=== PATIENT | female | born 1950 | race Caucasian/White ===

== ENCOUNTER 2018-03-20 23:24 | Emergency (ER) | payer BC ==
[~2018-03-20] VITALS: Ht 160 cm; Wt 82.9 kg
[~2018-03-20 23:24] MED LIST: CARVEDILOL25 MG PO; CIPRO500 MG PO; COREG25 M1 PO; COZAAR100 MG PO; DOXEPIN HCL50 MG PO; GLIPIZIDE10 MG PO; GLUCOPHAGE500 MG PO; GLUCOTROL10 MG PO; HYOSCYAMINE0.125 M1 SL; LANSOPRAZOLE30 MG PO; LOSARTAN POTAS100 MG PO; METFORMIN HCL500 MG PO; NIFEDIPINE10 MG PO; NORCO 5/3251 TABLET PO; PREVACID30 MG PO; PROCARDIA10 MG PO; SIMVASTATIN40 MG PO; SINEQUAN50 MG PO; SUCRALFATE1 GM PO; TRADJENTA5 MG PO; TYLENOL WITH C1 EACH PO; VITAMIN D31000 UNI2 PO; ZOCOR40 MG PO; ZOFRAN4 MG PO
[2018-03-21] LABS: HEMATOCRIT 37.5 % (36.0-46.0); HEMOGLOBIN 13.2 G/DL (11.9-15.5); MCH 32.4 PG (29.0-34.0); MCHC 35.2 G/DL (30.0-36.0); PLATELET COUNT 159 K/uL (156-360); RBC DIS.WIDTH-CV 13.4 % (11.8-14.6); RBC DIS.WIDTH-SD 45.5 % (39-53); RED BLOOD COUNT 4.08 M/uL (3.80-5.20); WHITE BLOOD COUNT 6.3 K/uL (4.1-10.2)
[2018-03-21 00:02] LABS: MCV 91.9 FL (83-99)
[2018-03-21 00:09] LABS: ALBUMIN 3.9 g/dL (3.2-4.8); CHLORIDE 107 mEq/L (99-109); POTASSIUM 3.9 mEq/L (3.7-5.4); SODIUM 141 mEq/L (136-147)
[2018-03-21 00:11] LABS: GLUCOSE 174 mg/dL (70-99)
[2018-03-21 00:12] LABS: TOTAL PROTEIN 6.7 g/dL (6.4-8.3)
[2018-03-21 00:13] LABS: TOTAL BILIRUBIN 0.3 mg/dL (0.0-1.0)
[2018-03-21 00:15] LABS: ALKALINE PHOSPHATASE 110 IU/L (3-129); CREATININE 0.9 mg/dL (0.6-1.3); GFR ESTIMATE (CALCULATED) > 59 mL/min/
[2018-03-21 00:16] LABS: UREA NITROGEN (BUN) 23 mg/dL (9-23)
[2018-03-21 00:17] LABS: AST (GOT) 19 IU/L (2-34)
[2018-03-21 00:18] LABS: ALT (GPT) 40 IU/L (3-49)
[2018-03-21 01:33] VITALS: BP 154/90
== END 2018-03-21 01:33 | disposition home or self-care (01) ==
LOC: EME 23:24
PROVIDERS: Physician Assistant
DX: I10 Essential (primary) hypertension (principal); I51.7 Cardiomegaly; R94.31 Abnormal electrocardiogram [ECG] [EKG]; E11.9 Type 2 diabetes mellitus without complications; Z79.84 Long term (current) use of oral hypoglycemic drugs; F41.9 Anxiety disorder, unspecified; Z85.9 Personal history of malignant neoplasm, unspecified; Z90.49 Acquired absence of other specified parts of digestive tract; Z88.8 Allergy status to other drugs, medicaments and biological substances; Z91.041 Radiographic dye allergy status
CPT/HCPCS: 80053; 85027; 93005; 99281; 99284